=== PATIENT | male | born 1955 | race Hispanic/Latino ===

== ENCOUNTER 2016-03-17 13:45 | Emergency (ER) | payer MEDICARE ==
--- NOTE | 2016-03-17 16:58 | Emergency Department Report ---
Chief Complaint: Chest Pain Stated Complaint: CHEST PAIN Time Seen by Provider: 03/17/16 16:48 - HPI History of Present Illness: 16-year-old male presents today with right leg pain for greater than 1 month. Patient states he was diagnosed with rhabdomyolysis in January 2016. He states pain worsened 2 days ago. Positive for vomiting and chest pain. Denies shortness of breath, abdominal pain. Patient states he was sent here by Dr. Samayoa to get admitted. - ROS Review of Systems: Per HPI - Exam Vital Signs: Vital Signs 03/17/16 14:02 Temperature 97.8 F Pulse Rate 64 Respiratory 18 Rate Blood Pressure 142/86 O2 Sat by Pulse 100 Oximetry Physical Exam: General: 60-year-old male in no acute distress. Well-developed, well-nourished. CV: Regular rate and rhythm. Lungs: Clear to auscultation bilaterally. Right lower extremity: Positive for calf tenderness to palpation. Peripheral pulses intact. Capillary refill less than 2 seconds. MSE screening note: Focused history and physical exam performed. Due to findings the following was ordered: ED Disposition for MSE Condition: Stable
[2016-03-17 17:35] LABS: Basophils % (Auto) 0.5 % (0.0-1.8); Eosinophils % (Auto) 0.2 % (0.0-4.3); Hematocrit 43.9 % (35.5-45.6); Hemoglobin 14.6 gm/dl (11.8-15.2); Mean Corpuscular HGB Conc 33 % (32-34); Mean Corpuscular Hemoglobin 29 pg (28-32); Mean Corpuscular Volume 87 fl (84-94); Platelet Count 218 K/mm3 (140-440); Red Blood Count 5.03 M/mm3 (3.65-5.03); Red Cell Distribution Width 14.3 % (13.2-15.2); White Blood Count 11.7 K/mm3 (4.5-11.0)
[2016-03-17 17:42] LABS: Alanine Aminotransferase 24 units/L (7-56); Albumin 4.5 g/dL (3.9-5); Alkaline Phosphatase 86 units/L (35-129); Anion Gap 21 mmol/L; BUN/Creatinine Ratio 17.14; Bilirubin,Total 0.4 mg/dL (0.1-1.2); Blood Urea Nitrogen 12 mg/dL (9-20); Calcium 9.3 mg/dL (8.4-10.2); Carbon Dioxide 23 mmol/L (22-30); Chloride 88.6 mmol/L (98-107); Creatine Kinase 51 units/L (55-170); Glucose 102 mg/dL (75-100); Lipase 79 units/L (13-60); Potassium 5.2 mmol/L (3.6-5.0); Sodium 127 mmol/L (137-145); Total Protein 8.8 g/dL (6.3-8.2)
[2016-03-17 17:47] LABS: Bilirubin,Direct < 0.2 mg/dL (0-0.2); Bilirubin,Indirect 0.2 mg/dL
[2016-03-18] MEDS ORDERED: TORADOL IV ONE (02:23)
[2016-03-18] MEDS ORDERED: DILAUDID IV ONE ×2 (02:23→04:04)
[2016-03-18] MEDS ORDERED: ZOFRAN IV ONE (02:23)
[2016-03-18] MEDS ORDERED: NACL 0.9% 1000 ML 1,000 ML IV ONE (02:24)
[2016-03-18 03:02] LABS: Bilirubin,Urine NEG (Negative); Blood,Urine NEG (Negative); Ketones,Urine NEG (Negative); Leukocyte Esterase,Urine NEG (Negative); Nitrite,Urine NEG (Negative); Protein,Urine <15 mg/dL mg/dL (Negative); Urobilinogen,Urine < 2.0 mg/dL (<2.0)
--- NOTE | 2016-03-18 05:49 | Emergency Department Report ---
ED Lower Extremity HPI - General Chief Complaint: Chest Pain Stated Complaint: CHEST PAIN Time Seen by Provider: 03/17/16 16:48 Source: patient Mode of arrival: Ambulatory Limitations: No Limitations - History of Present Illness Initial Comments: 60-year-old male with a past medical history CAD, hypertension, rhabdomyolysis, and reflex sympathetic dystrophy and chronic pain syndrome presents to the hospital complains of worsening right leg pain. Patient has had right leg pain at least since January. Worsening for the past 3 days. Patient states of significant narcotics at home without improvement. He states Dr. Elaine for pain management. Patient developed chest pain and vomiting today. States he had a cardiac cath performed in February and was told he had "small arteries" but denies receiving a stent or bypass surgery. Patient states his right leg pain typically feels like the skin is being ripped off but now the pain feels like the muscle is being ripped off to the bone. Pain is 10/10 intensity, worse with palpation and movement. Not alleviated with narcotic medication prescribed at home. Pt ran out of his narcotic several days ago since he was taking extra doses due to vomiting. - Related Data Home Medications Medication Instructions Recorded Confirmed Last Taken Ambien 10 mg 03/18/16 Unknown Atenolol 25 mg 03/18/16 Unknown Nitroglycerin [Nitrostat] 0.4 mg SL Q5M PRN 03/18/16 03/18/16 Unknown Phenytoin [Dilantin] 300 mg PO Q8HR 03/18/16 03/18/16 Unknown traZODone 150 mg 03/18/16 Unknown Previous Rx's Medication Instructions Recorded Last Taken Type Ondansetron [Zofran Odt] 4 mg PO Q8HR PRN #20 tab.rapdis 03/18/16 Unknown Rx Oxycodone HCl [Oxycontin] 40 mg PO Q12HR #14 tab.er.12h 03/18/16 Unknown Rx oxyCODONE /ACETAMINOPHEN [Percocet 1 tab PO Q6HR PRN #14 tablet 03/18/16 Unknown Rx 5/325] Allergies Allergy/AdvReac Type Severity Reaction Status Date / Time No Known Allergies Allergy Unverified 03/17/16 14:02 ED Review of Systems ROS: Stated complaint: CHEST PAIN Other details as noted in HPI Comment: All other systems reviewed and negative Other: Constitutional: No fevers chills Eyes: No eye pain visual changes ENT: No ear pain or throat pain Neck: Denies pain Respiratory: Denies cough wheezing shortness of breath Cardiovascular: Denies palpitations, syncope GI: Denies abdominal pain, nausea, vomiting, diarrhea : Denies dysuria, urinary frequency, or urgencs msK as per hpi Skin: Denies rash, lesions, erythema Neurologic: Denies headache, numbness, weakness Psychiatric: Denies suicidal ideation, hallucinations ED Past Medical Hx - Past Medical History Previous Medical History?: Yes Hx Hypertension: Yes Hx Heart Attack/AMI: Yes (x2) Hx Liver Disease: Yes (Hepatitis) Additional medical history: confusion, Gallbladder infection, Hepatitis C, Rhabdomyolysis - Surgical History Past Surgical History?: Yes Hx Appendectomy: Yes Additional Surgical History: Back surgery. Operation on spinal cord, 2 exploratory laps - Social History Smoking Status: Never Smoker Substance Use Type: Prescribed - Medications Home Medications: Home Medications Medication Instructions Recorded Confirmed Last Taken Type Ambien 10 mg 03/18/16 Unknown History Atenolol 25 mg 03/18/16 Unknown History Nitroglycerin [Nitrostat] 0.4 mg SL Q5M PRN 03/18/16 03/18/16 Unknown History Ondansetron [Zofran Odt] 4 mg PO Q8HR PRN #20 tab.rapdis 03/18/16 Unknown Rx Oxycodone HCl [Oxycontin] 40 mg PO Q12HR #14 tab.er.12h 03/18/16 Unknown Rx Phenytoin [Dilantin] 300 mg PO Q8HR 03/18/16 03/18/16 Unknown History oxyCODONE /ACETAMINOPHEN [Percocet 1 tab PO Q6HR PRN #14 tablet 03/18/16 Unknown Rx 5/325] traZODone 150 mg 03/18/16 Unknown History ED Physical Exam - General Limitations: No Limitations - Other Other exam information: General: No limitations, patient is alert in no acute distress Head exam: Atraumatic, normocephalic Eyes exam: Normal appearance, pupils equal reactive to light, extraocular movements intact ENT: Moist mucous membrane, normal oropharynx Neck exam: Normal inspection, full range of motion, no meningismus nontender Respiratory exam: Clear to auscultation bilateral, no wheezes, rales, crackles Cardiovascular: Normal rate and rhythm, normal heart sounds Abdomen: Soft, nondistended, and nontender, with normal bowel sounds, no rebound, or guarding Extremity: Full range of motion normal inspection no deformity pain with light palpation to right lower extremity. No edema. 2+ DP Back: Normal Inspection, full range of motion, no tenderness Neurologic: Alert, oriented x3, cranial nerves intact, no motor or sensory deficit Psychiatric: normal affect, normal mood Skin: Warm, dry, intact ED Course Vital Signs 03/17/16 03/18/16 03/18/16 14:02 00:34 04:30 Temperature 97.8 F Pulse Rate 64 87 74 Respiratory 18 16 17 Rate Blood Pressure 142/86 Blood Pressure 152/85 125/87 [Left] O2 Sat by Pulse 100 98 97 Oximetry - Reevaluation(s) Reevaluation #1: 03/18/16 05:50 Improved after Dilaudid 4 mg and patient received 1 L normal saline and Zofran with improvement 03/18/16 05:50 ED Lower Extremity MDM - Lab Data Result diagrams: 03/17/16 16:57 03/17/16 16:57 Lab Results 03/17/16 03/17/16 03/17/16 Range/Units 16:57 16:57 16:57 WBC 11.7 H (4.5-11.0) K/mm3 RBC 5.03 (3.65-5.03) M/mm3 Hgb 14.6 (11.8-15.2) gm/dl Hct 43.9 (35.5-45.6) % MCV 87 (84-94) fl MCH 29 (28-32) pg MCHC 33 (32-34) % RDW 14.3 (13.2-15.2) % Plt Count 218 (140-440) K/mm3 Lymph % (Auto) 18.1 (13.4-35.0) % Leslie % (Auto) 5.8 (0.0-7.3) % Eos % (Auto) 0.2 (0.0-4.3) % Baso % (Auto) 0.5 (0.0-1.8) % Lymph # 2.1 (1.2-5.4) K/mm3 Leslie # 0.7 (0.0-0.8) K/mm3 Eos # 0.0 (0.0-0.4) K/mm3 Baso # 0.1 (0.0-0.1) K/mm3 Seg Neutrophils % 75.4 H (40.0-70.0) % Seg Neutrophils # 8.8 H (1.8-7.7) K/mm3 Sodium 127 L (137-145) mmol/L Potassium 5.2 H (3.6-5.0) mmol/L Chloride 88.6 L (98-107) mmol/L Carbon Dioxide 23 (22-30) mmol/L Anion Gap 21 mmol/L BUN 12 (9-20) mg/dL Creatinine 0.7 L (0.8-1.5) mg/dL Estimated GFR > 60 ml/min BUN/Creatinine Ratio 17.14 % Glucose 102 H (75-100) mg/dL Calcium 9.3 (8.4-10.2) mg/dL Total Bilirubin 0.4 (0.1-1.2) mg/dL Direct Bilirubin < 0.2 (0-0.2) mg/dL Indirect Bilirubin 0.2 mg/dL AST 35 (5-40) units/L ALT 24 (7-56) units/L Alkaline Phosphatase 86 (35-129) units/L Total Creatine Kinase 51 L 36 L (55-170) units/L CK-MB (CK-2) 2.0 (0.0-4.0) ng/mL CK-MB (CK-2) Rel Index 3.9 (0-4) Troponin T < 0.010 (0.00-0.029) ng/mL Total Protein 8.8 H (6.3-8.2) g/dL Albumin 4.5 (3.9-5) g/dL Albumin/Globulin Ratio 1.0 % Lipase 79 H (13-60) units/L Urine Color (Yellow) Urine Turbidity (Clear) Urine pH (5.0-7.0) Ur Specific [place] (1.003-1.030) Urine Protein (Negative) mg/dL Urine Glucose (UA) (Negative) mg/dL Urine Ketones (Negative) mg/dL Urine Blood (Negative) Urine Nitrite (Negative) Urine Bilirubin (Negative) Urine Urobilinogen (<2.0) mg/dL Ur Leukocyte Esterase (Negative) Urine WBC (Auto) (0.0-6.0) /HPF Urine RBC (Auto) (0.0-6.0) /HPF 03/18/16 Range/Units 02:36 WBC (4.5-11.0) K/mm3 RBC (3.65-5.03) M/mm3 Hgb (11.8-15.2) gm/dl Hct (35.5-45.6) % MCV (84-94) fl MCH (28-32) pg MCHC (32-34) % RDW (13.2-15.2) % Plt Count (140-440) K/mm3 Lymph % (Auto) (13.4-35.0) % Leslie % (Auto) (0.0-7.3) % Eos % (Auto) (0.0-4.3) % Baso % (Auto) (0.0-1.8) % Lymph # (1.2-5.4) K/mm3 Leslie # (0.0-0.8) K/mm3 Eos # (0.0-0.4) K/mm3 Baso # (0.0-0.1) K/mm3 Seg Neutrophils % (40.0-70.0) % Seg Neutrophils # (1.8-7.7) K/mm3 Sodium (137-145) mmol/L Potassium (3.6-5.0) mmol/L Chloride (98-107) mmol/L Carbon Dioxide (22-30) mmol/L Anion Gap mmol/L BUN (9-20) mg/dL Creatinine (0.8-1.5) mg/dL Estimated GFR ml/min BUN/Creatinine Ratio % Glucose (75-100) mg/dL Calcium (8.4-10.2) mg/dL Total Bilirubin (0.1-1.2) mg/dL Direct Bilirubin (0-0.2) mg/dL Indirect Bilirubin mg/dL AST (5-40) units/L ALT (7-56) units/L Alkaline Phosphatase (35-129) units/L Total Creatine Kinase (55-170) units/L CK-MB (CK-2) (0.0-4.0) ng/mL CK-MB (CK-2) Rel Index (0-4) Troponin T (0.00-0.029) ng/mL Total Protein (6.3-8.2) g/dL Albumin (3.9-5) g/dL Albumin/Globulin Ratio % Lipase (13-60) units/L Urine Color Straw (Yellow) Urine Turbidity Clear (Clear) Urine pH 7.0 (5.0-7.0) Ur Specific [place] 1.002 L (1.003-1.030) Urine Protein <15 mg/dl (Negative) mg/dL Urine Glucose (UA) Neg (Negative) mg/dL Urine Ketones Neg (Negative) mg/dL Urine Blood Neg (Negative) Urine Nitrite Neg (Negative) Urine Bilirubin Neg (Negative) Urine Urobilinogen < 2.0 (<2.0) mg/dL Ur Leukocyte Esterase Neg (Negative) Urine WBC (Auto) 1.0 (0.0-6.0) /HPF Urine RBC (Auto) 1.0 (0.0-6.0) /HPF - EKG Data -: EKG Interpreted by Me (nsr are 59) - Radiology Data Radiology results: report reviewed (right leg doppler neg) - Medical Decision Making Pt has a very mild hyperkalemia. By mouth Kayexalate given. Mild hyponatremia was treated with 1 L of normal saline. Patient is to tolerate by mouth after Zofran and states that pain is finally improved after 2 was after receiving a total of Dilaudid 4 mg in the ED. It appears that patient's leg pain is chronic and ongoing. Patient states he has had some recent cardiac workup including a cardiac cath and has negative enzymes and unremarkable EKG in the ED. - Differential Diagnosis chronic pain, RSD, narcotic withdrawal, AL, gastritis, dehydration Critical Care Time: No Critical care attestation.: If time is entered above; I have spent that time in minutes in the direct care of this critically ill patient, excluding procedure time. ED Disposition Clinical Impression: Chronic leg pain, RSD (reflex sympathetic dystrophy), Vomiting, Narcotic dependence, Hyponatremia, Hyperkalemia Disposition: DISCHARGED TO HOME OR SELFCARE Is pt being admited?: No Does the pt Need Aspirin: No Condition: Stable Instructions: Lumbar Radiculopathy (ED), Arthralgia (ED), Acute Nausea and Vomiting (ED), Chronic Pain (ED), Hyperkalemia (ED), Hyponatremia (ED) Additional Instructions: Take the medication as prescribed. Return if symptoms worsen. You had mild elevation in your potassium mild decreasing his sodium level. He received treatment for both in the ER. Follow up with your doctor for repeat blood work to recheck the status of your electrolytes. Prescriptions: Ondansetron [Zofran Odt] 4 mg PO Q8HR PRN #20 tab.rapdis PRN Reason: Nausea And Vomiting oxyCODONE /ACETAMINOPHEN [Percocet 5/325] 1 tab PO Q6HR PRN #14 tablet PRN Reason: Pain Oxycodone HCl [Oxycontin] 40 mg PO Q12HR #14 tab.er.12h Referrals: FARIDA ELAINE MD [Staff Physician] - 3-5 Days PRIMARY CARE, [Primary Care Provider] - 3-5 Days Time of Disposition: 05:54
[2016-03-18] MEDS ORDERED: KIONEX PO ONE (05:51)
[2016-03-18] MEDS ORDERED: PERCOCET 5/325 PO ONE (06:26)
[2016-03-18 06:45] VITALS: BP 109/71
--- NOTE | 2016-03-18 07:43 | Vascular Lab Report ---
Right Lower Extremity Venous Duplex Study: Reason for Exam: Right calf pain. Comments on the Right: All veins visualized are freely compressible without evidence of internal echogenicity. Flow is spontaneous and phasic throughout. No evidence of acute or chronic thrombus is seen in any of the vessels visualized. Comments on the Left: A limited duplex study was done of the proximal veins of the left lower extremity. All veins visualized are freely compressible without evidence of internal echogenicity. Flow is spontaneous and phasic throughout. No evidence of acute or chronic thrombus is seen in any of the vessels visualized. Impression: No evidence of acute or chronic deep venous thrombosis in the right lower extremity.
== END 2016-03-18 06:44 | disposition home or self-care (01) ==
LOC: ED 13:45
DX: G90.50 Complex regional pain syndrome I, unspecified (principal); M79.605 Pain in left leg; R11.10 Vomiting, unspecified; E87.1 Hypo-osmolality and hyponatremia; E87.5 Hyperkalemia; F11.20 Opioid dependence, uncomplicated; I10 Essential (primary) hypertension; I25.2 Old myocardial infarction; Z86.19 Personal history of other infectious and parasitic diseases; R41.0 Disorientation, unspecified; Z90.49 Acquired absence of other specified parts of digestive tract
CPT/HCPCS: 36415; 80048; 80074; 81001; 82550; 82553; 83690; 84484; 85025; 93005; 93010; 93971; 96361; 96374; 96375; 96376; 99284; J1170; J1885; J2405; J7030